=== PATIENT | female | born 1950 | race African-American/Black ===

== ENCOUNTER 2021-07-19 12:28 | Outpatient (RCR) | payer MEDICARE, MEDICAID, SELFPAY ==
[2021-07-19 12:25] VITALS: BMI 45.1
== END 2021-10-08 09:26 | disposition home or self-care (01) ==
LOC: ANHDMC 12:28
PROVIDERS: Visit Provider Nurse Practitioner Family
DX: E11.65 Type 2 diabetes mellitus with hyperglycemia (principal); Z71.3 Dietary counseling and surveillance
CPT/HCPCS: 97802

== ENCOUNTER 2022-01-31 11:50 | Outpatient (CLI) | payer MEDICARE, MEDICAID, SELFPAY ==
[2022-01-31 13:36] LABS: Creatinine Urine 105.6 mg/dL
[2022-01-31 13:41] LABS: MALB Creatinine Ratio 38.9 mg/g (0-30); Microalbumin Urine Random 41.1 mg/L (0-16.7)
[2022-01-31 23:11] LABS: Anion Gap 11 mmol/L (8-16); Blood Urea Nitrogen 16 mg/dL (7-17); Calcium 10.1 mg/dL (8.4-10.2); Carbon Dioxide 28 mmol/L (22-30); Chloride 102 mmol/L (98-107); Estimated Glomerular Filt Rate 59; Glucose 152 mg/dL (65-110); HDL Direct 48 mg/dL; Sodium 141 mmol/L (137-145)
[2022-01-31 23:22] LABS: LDL Cholesterol Direct 44 mg/dL
== END 2022-01-31 11:51 | disposition home or self-care (01) ==
LOC: ANHWCLAB 11:53
PROVIDERS: Visit Provider Internal Medicine Endocrinology, Diabetes & Metabolism
DX: E11.649 Type 2 diabetes mellitus with hypoglycemia without coma (principal); Z79.4 Long term (current) use of insulin
CPT/HCPCS: 36415; 80048; 82043; 82607; 83718; 83721; 84443

== ENCOUNTER 2023-03-10 11:21 | Outpatient (CLI) | payer MEDICARE, MEDICAID, SELFPAY ==
[2023-03-10 17:22] LABS: Creatinine Urine 59.5 mg/dL
[2023-03-10 17:48] LABS: MALB Creatinine Ratio < 10.1 mg/g (0-30); Microalbumin Urine Random < 6.0 mg/L (0-16.7)
[2023-03-10 18:49] LABS: Anion Gap 7 mmol/L (8-16); Blood Urea Nitrogen 25 mg/dL (7-17); Calcium 9.6 mg/dL (8.4-10.2); Carbon Dioxide 31 mmol/L (22-30); Chloride 100 mmol/L (98-107); Estimated Glomerular Filt Rate 53; Glucose 124 mg/dL (65-110); HDL Direct 49 mg/dL; Potassium 3.7 mmol/L (3.4-5.0); Sodium 138 mmol/L (137-145)
[2023-03-10 19:02] LABS: LDL Cholesterol Direct 67 mg/dL
[2023-03-10 19:18] LABS: Thyroid Stimulating Hormone 0.436 uIU/mL (0.465-4.680)
== END 2023-03-10 11:22 | disposition home or self-care (01) ==
LOC: ANHWCLAB 11:23
PROVIDERS: Visit Provider Internal Medicine Endocrinology, Diabetes & Metabolism
DX: E78.5 Hyperlipidemia, unspecified (principal); E11.65 Type 2 diabetes mellitus with hyperglycemia; E55.9 Vitamin D deficiency, unspecified
CPT/HCPCS: 36415; 80048; 82043; 82306; 82607; 83718; 83721; 84443

== ENCOUNTER 2023-06-23 10:35 | Outpatient (CLI) | payer MEDICARE, MEDICAID, SELFPAY ==
[2023-06-23 17:41] LABS: Thyroid Stimulating Hormone 0.973 uIU/mL (0.465-4.680)
[2023-06-26 07:18] LABS: Triiodothyronine T3 Free 2.4 pg/mL (2.3-4.2)
== END 2023-06-23 10:36 | disposition home or self-care (01) ==
LOC: ANHWCLAB 10:37
PROVIDERS: PCP Physician Assistant; Visit Provider Internal Medicine Endocrinology, Diabetes & Metabolism
DX: E11.65 Type 2 diabetes mellitus with hyperglycemia (principal); R79.89 Other specified abnormal findings of blood chemistry; Z79.4 Long term (current) use of insulin; E04.9 Nontoxic goiter, unspecified
CPT/HCPCS: 36415; 84443; 84481

== ENCOUNTER 2023-07-23 09:15 | Outpatient (CLI) | payer MEDICARE, MEDICAID, SELFPAY ==
--- NOTE | ~2023-07-23 | US_ITS ---
EXAMINATION: US thyroid DATE: 07/23/2023 10:25 INDICATION: Nontoxic single thyroid nodule. TECHNIQUE: Multiple ultrasound images of the thyroid were obtained. COMPARISON: None. FINDINGS: The right thyroid lobe measures 7.9 x 4.4 x 5.4 cm. The left thyroid lobe measures 6.4 x 2.2 x 2.9 c m. There are multiple thyroid nodules. In the right thyroid lobe, there is a 4.3 cm predominantly so lid, hypoechoic, wider than tall nodule with smooth margin without echogenic foci (TI-RADS TR4). In t he right thyroid lobe, there is a 3.3 cm solid, hypoechoic, wider than tall nodule with ill-defined m argin without echogenic foci (TR4). In the left thyroid lobe, there is a 1.4 cm solid, hypoechoic, wi maggi than tall nodule with lobulated margin without echogenic foci (TR4). In the thyroid isthmus, ther e is a 4.2 cm solid, hypoechoic, wider than tall nodule with smooth margin without echogenic foci (TR 4). IMPRESSION: 1. Multinodular goiter. Consider ultrasound-guided fine-needle aspiration of 2 nodules. Reviewed, dictated and finalized at location A. STRIPPER
== END 2023-07-23 09:16 | disposition home or self-care (01) ==
LOC: ANHIMG 09:16
PROVIDERS: PCP Physician Assistant; Visit Provider Internal Medicine Endocrinology, Diabetes & Metabolism
DX: E04.2 Nontoxic multinodular goiter (principal)
CPT/HCPCS: 76536

== ENCOUNTER 2023-09-18 11:44 | Outpatient (CLI) | payer MEDICARE, MEDICAID, SELFPAY ==
--- NOTE | ~2023-09-18 | US_ITS ---
EXAMINATION: US FNA w image guidance, US FNA additional DATE: 09/18/2023 14:07 INDICATION: Multinodular goiter. TECHNIQUE: A time-out was performed to verify the patient's name, date of , and procedure to be performed . The procedure and its benefits and risks were discussed with the patient. [employer] ultrasound of the t hyroid was performed with correlation with the prior imaging. On real-time imaging of the nodule at t he thyroid isthmus appears to be comprised of 3 separate smaller nodules, the largest measuring up to 2.8 cm. At the 2 largest TI RADS 4 nodules were chosen for biopsy, the larger measuring 4.7 in the s uperior right thyroid and the slightly smaller nodule measuring 3.1 cm in the inferior right thyroid. Risks specifically discussed included bleeding and infection. The patient understood the risks and a greed to proceed. The neck was prepped and draped in the usual sterile manner. 6 mL 1% lidocaine was used for local anesthesia. 6 passes were made with a 25G needle into the 4.7 cm inferior right thyr oid nodule and 6 passes into the 3.1 cm superior right thyroid nodule. Appropriate needle location w as documented with continuous sonographic guidance. A sterile bandage was applied. There were no im mediate complications. FINDINGS: Grayscale ultrasound images demonstrate biopsy needles advanced into a 4.7 cm predominantly solid hyp oechoic TI RADS 4 nodule in the inferior right thyroid and a 3.1 cm solid nodules in the superior rig ht thyroid. The nodule previously described as measuring 4.2 cm the thyroid isthmus appear to be comp rised of 3 separate abutting nodules the largest measuring 2.8 cm in maximal diameter. IMPRESSION: 1. Successful ultrasound-guided fine needle aspiration of a 4.7 cm TI RADS 4 nodule in the inferior right thyroid 2. Successful ultrasound guided fine needle aspiration of a 3.1 cm TI RADS 4 nodule in the superior r ight thyroid. 3. Cluster of 3 independent nodules the largest measuring 2.8 cm at the thyroid isthmus but which wer e measured as a single nodule in the prior study. Reviewed, dictated and finalized at location A. [employer] IMPRESSION: 1. Successful ultrasound-guided fine needle aspiration of a 4.7 cm TI RADS 4 n odule in the inferior right thyroid 2. Successful ultrasound guided fine needle aspiration of a 3.1 cm TI RADS 4 no dule in the superior right thyroid. 3. Cluster of 3 independent nodules the largest measuring 2.8 cm at the thyroid isthmus but which were measured as a single nodule in the prior study.
== END 2023-09-18 11:45 | disposition home or self-care (01) ==
LOC: ANHIMG 11:47
PROVIDERS: PCP Physician Assistant; Visit Provider Internal Medicine
DX: E04.1 Nontoxic single thyroid nodule (principal)
CPT/HCPCS: 10005; 10006; 88172; 88173; 88305